=== PATIENT | female | born 1960 | race Caucasian/White ===

== ENCOUNTER → 2021-06-24 11:35 | Outpatient (CLI) | payer OTHER, SELFPAY ==
[2021-06-24 20:13] LABS: COVID19 - ORCAS (NP or Nasal) Negative (Negative)
== END ==
PROVIDERS: PCP Family Medicine; Visit Provider Family Medicine
DX: Z20.822 Contact with and (suspected) exposure to COVID-19 (principal); Z01.812 Encounter for preprocedural laboratory examination
CPT/HCPCS: U0003

== ENCOUNTER → 2022-02-19 08:09 | Outpatient (CLI) | payer OTHER, SELFPAY ==
[2022-02-19 20:11] LABS: COVID19 - ORCAS (NP or Nasal) Negative (Negative)
== END ==
PROVIDERS: PCP Family Medicine; Visit Provider Physician Assistant Medical
DX: Z01.818 Encounter for other preprocedural examination (principal); Z20.822 Contact with and (suspected) exposure to COVID-19
CPT/HCPCS: U0003